=== PATIENT | female | born 1985 | race Caucasian/White ===

== ENCOUNTER 2021-03-29 19:11 | Emergency (ER) | payer OTHER ==
[~2021-03-29] VITALS: Ht 157.5 cm; Wt 63.5 kg
[2021-03-29] MEDS ORDERED: CENTANY30 GM TOP (20:07)
[2021-03-29 20:36] VITALS: BP 136/80
== END 2021-03-29 20:38 | disposition home or self-care (01) ==
LOC: EDSEX 19:11 → M.ERS 19:11
DX: T23.232A Burn of second degree of multiple left fingers (nail), not including thumb, initial encounter (principal); X16.XXXA Contact with hot heating appliances, radiators and pipes, initial encounter; Y93.89 Activity, other specified; Y92.89 Other specified places as the place of occurrence of the external cause; Y99.9 Unspecified external cause status